=== PATIENT | female | born 1940 | race Caucasian/White ===

== ENCOUNTER 2022-07-09 19:58 | Emergency (ER) | payer OTHER ==
[2022-07-09 20:26] VITALS: BP 160/62; PULSE 75; RESP 18; TEMP 98; BMI 26.7
== END 2022-07-09 23:10 | disposition home or self-care (01) ==
LOC: FER 19:58
DX: S02.2XXA Fracture of nasal bones, initial encounter for closed fracture (principal); S46.011A Strain of muscle(s) and tendon(s) of the rotator cuff of right shoulder, initial encounter; W01.0XXA Fall on same level from slipping, tripping and stumbling without subsequent striking against object, initial encounter
CPT/HCPCS: 70450-TC; 70486-TC; 73030-TC-RT-FY; 99285-25